=== PATIENT | female | born 1955 | race Caucasian/White ===

== ENCOUNTER 2018-07-23 20:29 | Inpatient (IN) | payer MEDICARE, OTHER ==
[~2018-07-23] VITALS: Ht 162.6 cm; Wt 90.5 kg
[2018-07-23] MEDS ORDERED: LO-DOSE ASPIRIN81 MG PO (21:34)
[2018-07-23] MEDS ORDERED: BUSP5 PO ×2 (21:35→21:36)
[2018-07-23] MEDS ORDERED: Ativan0.5 MG PO (21:35)
[2018-07-23] MEDS ORDERED: DULO60 PO (21:36)
[2018-07-23] MEDS ORDERED: CARV25 PO (21:36)
[2018-07-23] MEDS ORDERED: ALBU3IS INH (21:36)
[2018-07-23] MEDS ORDERED: CLOP75 (21:36)
[2018-07-23] MEDS ORDERED: Isosorbide Mono30 MG (21:38)
[2018-07-23] MEDS ORDERED: FURO20 PO (21:38)
[2018-07-23] MEDS ORDERED: METPRE4DP (21:38)
[2018-07-23] MEDS ORDERED: POTCHL10ER PO (21:39)
[2018-07-23] MEDS ORDERED: OMEPRAZOLE20 MG (21:39)
[2018-07-23] MEDS ORDERED: MELO7.5 PO (21:39)
[2018-07-23] MEDS ORDERED: Nitroglycerin0.4 MG (21:39)
[2018-07-23] MEDS ORDERED: ALBU90OI (21:41)
[2018-07-23] MEDS ORDERED: BUDE10.22 INH (21:41)
[2018-07-23] MEDS ORDERED: Micro-K10 MEQ (21:41)
[2018-07-23] MEDS ORDERED: Zocor20 MG (21:41)
[2018-07-23 22:45] LABS: Hematocrit 37.4 % (33.0-51.0); Hemoglobin 10.7 g/dL (11.5-16.0); Mean Corpuscular HGB 25.8 pg (26.0-34.0); Mean Corpuscular HGB Conc 28.6 g/dL (31.5-36.5); Mean Corpuscular Volume 90 fL (80-100); Mean Platelet Volume 10.7 fL (9.1-12.4); NRBC ABSOLUTE 0.14 K/mm3 (0.00-0.02); NRBC Auto 1.2 /100 WBC (0.0-0.2); Platelet Count 237 K/mm3 (150-400); RDW Coefficient Variation 16.5 % (11.7-14.2); RDW Standard Deviation 54.2 fL (35.1-46.3); Red Blood Cell Count 4.14 M/mm3 (3.80-5.20); White Blood Cell Count 11.48 K/mm3 (4.00-11.30)
[2018-07-23 23:02] LABS: BAND PERCENT MAN 1 % (0-8); BASOPHILS PERCENT MAN 0 % (0-2); EOSINOPHILS PERCENT MAN 0 % (0-6); LYMPHOCYTES ABSOLUTE MAN 1.26 K/mm3 (0.84-5.20); LYMPHOCYTES PERCENT MAN 11 % (21-46); MONOCYTES ABSOLUTE MAN 0.68 K/mm3 (0.16-1.47); MONOCYTES PERCENT MAN 6 % (4-13); MYELOCYTE ABSOLUTE MAN 0.11 K/mm3 (0.00-0.00); MYELOCYTE PERCENT MAN 1 % (0-0); NEUTROPHILS ABSOLUTE MAN 9.41 K/mm3 (1.96-9.15); SEG NEUTROPHILS PERCENT MAN 81 % (41-73); TOTAL CELLS COUNTED 100
[2018-07-23 23:04] LABS: Bilirubin, Total 0.2 mg/dL (0.1-1.0); Bun/Creatinine Ratio 32.4 (12.0-20.0); Calcium, Blood 8.8 mg/dL (8.5-10.1); Creatinine, Blood 1.02 mg/dL (0.40-1.00); Potassium, Blood 4.4 mmol/L (3.5-5.5); Troponin I 0.119 ng/mL (0.000-0.040)
[2018-07-24 00:42] LABS: PCO2 Arterial 98.5 mmHg (35-45); PO2 Arterial 101 mmHg (80-100); pH Blood Arterial 7.21 (7.35-7.45)
[2018-07-24 06:27] LABS: Hematocrit 37.2 % (33.0-51.0); Hemoglobin 10.3 g/dL (11.5-16.0); Mean Corpuscular HGB 25.3 pg (26.0-34.0); Mean Corpuscular HGB Conc 27.7 g/dL (31.5-36.5); Mean Corpuscular Volume 91 fL (80-100); Mean Platelet Volume 10.8 fL (9.1-12.4); NRBC ABSOLUTE 0.12 K/mm3 (0.00-0.02); NRBC Auto 1.2 /100 WBC (0.0-0.2); Platelet Count 221 K/mm3 (150-400); RDW Coefficient Variation 16.6 % (11.7-14.2); RDW Standard Deviation 55.2 fL (35.1-46.3); Red Blood Cell Count 4.07 M/mm3 (3.80-5.20); White Blood Cell Count 10.35 K/mm3 (4.00-11.30)
[2018-07-24 06:39] LABS: Alanine Aminotransfer (ALT/SGP 60 U/L (12-78); Albumin/Globulin Ratio 0.9 (0.8-1.8); Alk Phos 100 U/L (50-136); Anion Gap 4 mmol/L (6-16); Aspartate Aminotrans (AST/SGOT 30 U/L (12-37); Bilirubin, Total 0.3 mg/dL (0.1-1.0); Blood Urea Nitrogen 33 mg/dL (8-24); Bun/Creatinine Ratio 44.2 (12.0-20.0); CO2, Blood 37 mmol/L (21-32); Calcium, Blood 8.9 mg/dL (8.5-10.1); Chloride, Blood 103 mmol/L (98-108); Creatinine, Blood 0.75 mg/dL (0.40-1.00); Globulin, Blood 3.2 g/dL (2.2-4.0); Glomerular Filtration Rate >60 (60-); Glucose, Blood 114 mg/dL (70-99); Potassium, Blood 3.9 mmol/L (3.5-5.5); Sodium, Blood 144 mmol/L (136-145); Total Protein, Blood 6.2 g/dL (6.4-8.2)
[2018-07-24 06:43] LABS: Troponin I 0.101 ng/mL (0.000-0.040)
[2018-07-24 06:46] LABS: Source, Urine Clean Catch
[2018-07-24 06:56] LABS: Appearance, Urine Clear (Clear); Bilirubin, Urine Neg (Neg); Blood, Urine 5+ (Neg); Color, Urine Yellow (P-Yellow); Glucose Qualitative, Urine Neg (Neg); Ketones, Urine Neg (Neg); Leukocyte Esterase, Urine 3+ (Neg); Nitrite, Urine Neg (Neg); Protein, Urine 1+ (Neg); Specific Gravity, Urine 1.025 (1.003-1.022); Urobilinogen, Urine NORM (Normal)
[2018-07-24 07:12] LABS: White Blood Cells, Urine 25-50 /hpf (0-5)
[2018-07-24 07:14] LABS: Bacteria Mod /hpf; Granular Casts 0-2 /lpf (0); Squamous Epithelial Cells Many /hpf (Few)
[2018-07-24 07:15] LABS: WBC Cast 0-2 /lpf (0)
[2018-07-24 07:17] LABS: U Amphetamine Screen Not Detected; U Barbituate Screen Not Detected; U Benzodiazapine Screen Not Detected; U Buprenorphine Screen Not Detected; U Cannabinoids Screen Not Detected; U Cocaine Screen Not Detected; U Methadone Screen Not Detected; U Methamphetamine Screen Not Detected; U Opiates Screen Not Detected; U Oxycodone Screen Not Detected; U Phencyclidine Screen Not Detected; U Propoxyphene Screen Not Detected
--- NOTE | 2018-07-24 07:21 | NUR ---
SHIFT SUMMARY PT SLEEPING IN ROOM COMFORTABLY AT THIS TIME. T/O NIGHT PT SLEPT W/ BIPAP ONSATS >92%. PT TOLERATES MASK WELL. DENIES CP. PT HAD CT SCAN. REPORTS CHRONIC PAIN TO ACK. KPAD APPLIED FOR COMFORT. PT IS NPO FOR CARDIO CONSULT THIS AM. HEPARIN GTT INFUING IN PIV. CALL LIGHT IN REACH.
--- NOTE | 2018-07-24 10:35 | NUR ---
Echocardiogram completed.
--- NOTE | 2018-07-24 15:02 | NUR ---
Patient is sitting in a chair and alert when I entered the room. Patient immediately shared about her medical issues and about her deep desire to be closer to God. I explored patient's belief system, facilitated a life review, normalized patient's experience, provided pastoral benefits counselor and prayer and reinforced helpful attitudes and practices. Patient responded well to all interventions and displayed evidence of restored bibi.
[2018-07-24 15:13] LABS: Troponin I 0.068 ng/mL (0.000-0.040)
--- NOTE | 2018-07-24 18:26 | NUR ---
SHIFT SUMMARY PT ALERT AND ORIENTED. VS STALE. O2 SATS HAVE REMAINED ABOVE 90% ON 5L NC. PT USES 3L NC AT BASELINE. HEPARIN GTT INFUSING PER ORDERS. PT COMPLAINED OF BACK PAIN THIS AM THAT WAS RELIEVED WITH MEDICATION ADMINISTRATION. PT ABLE TO TRANSFER TO BATHROOM NEEDED WITH SBA AND FWW. NO OTHER CHANGES THIS SHIFT. WILL CONTINUE TO MONITOR AND REPORT TO ONCOMING RN. CALL LIGHT IN REACH.
--- NOTE | 2018-07-25 04:53 | NUR ---
SHIFT SUMMARY PT A&O X4 W/ EPISODES OF FORGETFULNESS. LUNG SOUNDS DIM T/O. SPO2 > 90% ON 5L NC OR BIPAP /, FIO2 35%. PT WEARING BIPAP OFF AND ON T/O SHIFT. MONITOR SHOWS NSR, HR 80'S. PT DENIES CP T/O SHIFT. HEPARIN GTT INFUSING PER ORDERS. WILL CONTINUE TO MONITOR AND PROVIDE CARE UNTIL REPORT OFF TO DAY SHIFT RN.
[2018-07-25 05:44] LABS: Hematocrit 36.7 % (33.0-51.0); Hemoglobin 10.3 g/dL (11.5-16.0); Mean Corpuscular HGB 25.5 pg (26.0-34.0); Mean Corpuscular HGB Conc 28.1 g/dL (31.5-36.5); Mean Corpuscular Volume 91 fL (80-100); Mean Platelet Volume 10.9 fL (9.1-12.4); NRBC ABSOLUTE 0.02 K/mm3 (0.00-0.02); NRBC Auto 0.2 /100 WBC (0.0-0.2); Platelet Count 210 K/mm3 (150-400); RDW Coefficient Variation 15.8 % (11.7-14.2); RDW Standard Deviation 51.8 fL (35.1-46.3); Red Blood Cell Count 4.04 M/mm3 (3.80-5.20); White Blood Cell Count 10.52 K/mm3 (4.00-11.30)
[2018-07-25 06:09] LABS: Anion Gap 1 mmol/L (6-16); Blood Urea Nitrogen 28 mg/dL (8-24); Bun/Creatinine Ratio 53.9 (12.0-20.0); CO2, Blood 40 mmol/L (21-32); Calcium, Blood 8.7 mg/dL (8.5-10.1); Chloride, Blood 99 mmol/L (98-108); Creatinine, Blood 0.52 mg/dL (0.40-1.00); Glomerular Filtration Rate >60 (60-); Glucose, Blood 216 mg/dL (70-99); Potassium, Blood 4.4 mmol/L (3.5-5.5); Sodium, Blood 140 mmol/L (136-145)
--- NOTE | 2018-07-25 08:05 | NUR ---
AM NOTE. ASSUMED CARE OF PT APROX 0700, PT IS A&Ox4 BUT IS FORGETFUL AT TIMES PER PT. PT WAS ABLE TO STATE THE DATE, PLACE, PRESIDENT AND EVENT THAT BROUGHT HER HERE. PT WAS ADMITTED DUE TO CP, PT IS ON A HEPARIN GTT AT 23 U/KG/HR RUNNING AT 31.3 MLS/HR PER ORDRES. TELE INTACT, NSR IN THE 90'S PER LABOR SPECIALIST, PT'S BP 159/102, 3+ PITTING EDEMA NOTED TO THE PT'S BILAT FEET AND 2+ UP THE PT'S RIGHT LEG. PT'S L/S VERY DIM T/O, PT IS ON 6L NC WITH O2 W/SATS 89-93%. BT PRESENT AND HYPOACTIVE, ABD IS SOFT AND NONTENDER TO PALP. CALL LIGHT IN REACH, BED IS LOCKED AND LOW WILL CONTINUE TO MONITOR.
--- NOTE | 2018-07-25 18:22 | NUR ---
SHIFT SUMMARY. NO ACUTE CHANGES NOTED THIS SHIFT. PT'S VS HAVE BEEN STABLE. PT DENIES ANY CHEST PAIN/PRESSURE, N/V AND NO ABNORMAL SOB. PT'S O2 HAS BEEN TITRATED FROM 6L NC TO 4L NC AND WILL CONTINUE TO TITRATE PT TOLERATES. PT C/O OF PAIN AND WAS MEDICATED PER EMAR W/GOOD RESULTS. PT HAS BEEN UP IN THE CHAIR FOR MEALS AND SITTING AT THE SIDE OF THE BED AND HAS TOLERATED THIS WELL. CALL LIGHT IN REACH, BED IS LOCKED AND LOW WILL CONTINUE TO MONITOR UNTIL REPORT IS GIVEN TO ONCOMING RN.
--- NOTE | 2018-07-26 04:48 | NUR ---
SHIFT SUMMARY PT A&O X4 W/ EPISODES OF FORGETFULNESS. PT CALM AND COOPERATIVE. SBA TO BSC. LUNG SOUNDS DIM T/O. SPO2 > 90% ON 4L NC OR BIPAP 03/19, FIO2 35%. PT WEARING BIPAP MAJORITY OF SHIFT. MONITOR SHOWS NSR, HR 80'S. NO CP THIS SHIFT. WILL CONTINUE TO MONITOR AND PROVIDE CARE UNTIL REPORT OFF TO DAY SHIFT RN.
[2018-07-26 06:58] LABS: Anion Gap 2 mmol/L (6-16); Blood Urea Nitrogen 24 mg/dL (8-24); Bun/Creatinine Ratio 53.6 (12.0-20.0); CO2, Blood 38 mmol/L (21-32); Calcium, Blood 8.6 mg/dL (8.5-10.1); Chloride, Blood 99 mmol/L (98-108); Creatinine, Blood 0.45 mg/dL (0.40-1.00); Glomerular Filtration Rate >60 (60-); Glucose, Blood 157 mg/dL (70-99); Potassium, Blood 4.3 mmol/L (3.5-5.5); Sodium, Blood 139 mmol/L (136-145)
[2018-07-27 04:20] LABS: Hematocrit 35.6 % (33.0-51.0); Hemoglobin 10.2 g/dL (11.5-16.0); Mean Corpuscular HGB 25.9 pg (26.0-34.0); Mean Corpuscular HGB Conc 28.7 g/dL (31.5-36.5); Mean Corpuscular Volume 90 fL (80-100); Mean Platelet Volume 11.3 fL (9.1-12.4); NRBC ABSOLUTE 0.02 K/mm3 (0.00-0.02); NRBC Auto 0.1 /100 WBC (0.0-0.2); Platelet Count 225 K/mm3 (150-400); RDW Coefficient Variation 15.8 % (11.7-14.2); RDW Standard Deviation 51.5 fL (35.1-46.3); Red Blood Cell Count 3.94 M/mm3 (3.80-5.20)
[2018-07-27 04:42] LABS: Anion Gap 2 mmol/L (6-16); Blood Urea Nitrogen 23 mg/dL (8-24); Bun/Creatinine Ratio 52.4 (12.0-20.0); CO2, Blood 41 mmol/L (21-32); Calcium, Blood 9.2 mg/dL (8.5-10.1); Chloride, Blood 97 mmol/L (98-108); Creatinine, Blood 0.44 mg/dL (0.40-1.00); Glomerular Filtration Rate >60 (60-); Glucose, Blood 101 mg/dL (70-99); Potassium, Blood 4.1 mmol/L (3.5-5.5); Sodium, Blood 140 mmol/L (136-145)
--- NOTE | 2018-07-27 06:14 | NUR ---
SHIFT SUMMARY PT A&O X4. PT C/O BACK PAIN, TX'D PER EMAR AND HEAT PAD. LUNG SOUNDS DIM T/O. SPO2 > 90% ON 3L NC. BIPAP AT BEDSIDE W/ MINIMAL USE THIS SHIFT D/T PT REFUSAL. MONITOR SHOWS NSR. SBA TO BSC. WILL CONTINUE TO MONITOR AND PROVIDE CARE UNTIL REPORT OFF TO DAY SHIFT RN.
--- NOTE | 2018-07-27 10:48 | NUR ---
PCU DAYSHIFT ASSUMED CARE OF PT APPROX. 0700. PT A&O X4. ASSESSMENT COMPLETED. VITAL SIGNS STABLE. PT ABLE TO AMBUALTE TO BEDSIDE COMMODE THIS MORNING NEEDED AND TOLERATED WELL. PT LENARD HAS 3L OXYGEN VIA N.C. IN PLACE WITH OXYGEN IN 90'S. PT FORGETFUL AT TIMES. PT ASKED ABOUT TAKING OXYGEN OFF FOR A BREAK. REINFORECED AND EDUCATED PT ON IMPORTANCE OF KEEPING OXYGEN IN PLACE. PT ABLE TO SIT UP AT BEDSIDE FOR BREAKFAST. PMD IN TO SEE PT THIS MORNING. RECIEVED ORDERS TO TRANSFER IN HOUSE TO MEDICAL FLOOR WITH TELEMETRY IN PLACE. PT REPORTS BACK PAIN INCREASED THIS MORNING. PRN PAIN MEDICATION GIVEN FOR THIS. PT HAS SCATTERED BRUISING THROUGHOUT BODY, INCLUDING EXTREMITIES, FACE AND AROUND EYES. PT REPORTS THIS TO BE FROM PREVIOUS FALLS. BED IN LOW POSITION, CALL LIGHT IN REACH AND PT DENIES ANY NEEDS AT THIS TIME. WILL CONTINUE TO MONITOR.
--- NOTE | 2018-07-27 16:37 | NUR ---
PATIENT ARRIVES VIA W/C ON 3 LPM OXYGEN VIA N/C. COOPERATIVE. CHEERFUL. BRUISES T/O. SCAR LT POSTERIOR UPPER BACK. AMBULATORY W/STEADY GAIT TO BED. BILATERAL PITTING EDEMA. TELE ON WITH TECH STATING SR AT 86. ORIENTED TO ROOM. BED IN LOW POSITION. UNLABORED RESPIRATIONS. WILL CONTINUE TO MONITOR.
--- NOTE | 2018-07-28 03:41 | NUR ---
SHIFT SUMMARY THE PT ADMITTED FOR CP. FULL CODE. REGULAR DIET. TELE-NSR AT A RATE OF 93 WIT PACS PER CASING FLUID TENDER. LOVENOX. 3L O2 VIA NC WHICH IS BASELINE PER REPORT. PT IS A STANDBY ASSIST WITH TRANSFERS. PT REPORTS HAVING MULTIPLE FALLS AT HOME AND PT NOTED TO HAVE SEVERAL BRUISES SECONDARY TO THESE FALLS. THE PT CAME FROM [facility] AND IT IS UNCLEAR HOW THE PT WILL GET HOME PER REPORT. 20G IV TO L FA. TAKES MEDICATIONS WHOLE. THE PT PRESENTED TO [facility] WITH C/O CP AND INCREASED TROPONINS. THE PT TRANSFERRED FROM [facility] FOR [facility]. THE PT WAS NOTED ON ADMIT TO HAVE ACUTE ENCEPHALOPATHY OF UNCLEAR ETIOLOGY, WHICH HAS SENSE RESOLVED, AND ACUTE RESPIRATORY FAILURE. THE PT IS NOW AWAITING CARDIOLOGY PLANS AND CARE MANAGMENT DISCHARGE PLANS. THE PT HAS BEEN AWAKE MOST OF THE NIGHT ASKING FOR SNACKS AND EATING. THE PT IS UP AT BEDSIDE AT THIS TIME WITH NO APPARENT SIGNS OF ACUTE DISTRESS. PT SLEPT A SHORT TIME EARLIER IN THE EVENING WITH C-PAP IN PLACE BUT HAS NOT RE-APPLIED SINCE REMOVAL AT THAT TIME. ABLE TO MAKE NEEDS KNOWN AND CALL LIGHT IN REACH.
[2018-07-28 05:53] LABS: Hemoglobin 10.4 g/dL (11.5-16.0); Mean Corpuscular HGB 25.8 pg (26.0-34.0); Mean Corpuscular HGB Conc 28.9 g/dL (31.5-36.5); Mean Corpuscular Volume 89 fL (80-100); NRBC ABSOLUTE 0.03 K/mm3 (0.00-0.02); NRBC Auto 0.3 /100 WBC (0.0-0.2); Platelet Count 193 K/mm3 (150-400); RDW Coefficient Variation 15.9 % (11.7-14.2); RDW Standard Deviation 51.8 fL (35.1-46.3); Red Blood Cell Count 4.03 M/mm3 (3.80-5.20); White Blood Cell Count 11.86 K/mm3 (4.00-11.30)
[2018-07-28 06:12] LABS: Anion Gap 0 mmol/L (6-16); Blood Urea Nitrogen 23 mg/dL (8-24); Bun/Creatinine Ratio 41.4 (12.0-20.0); CO2, Blood 42 mmol/L (21-32); Chloride, Blood 98 mmol/L (98-108); Creatinine, Blood 0.56 mg/dL (0.40-1.00); Glomerular Filtration Rate >60 (60-); Glucose, Blood 114 mg/dL (70-99); Potassium, Blood 4.1 mmol/L (3.5-5.5); Sodium, Blood 140 mmol/L (136-145)
--- NOTE | 2018-07-28 18:29 | NUR ---
ALERT. CALLS OFTEN BUT DOES NOT REALLY NEED ANYTHING; SUCH , RELAYS ABOUT WHAT IS ON TV. TELE ON. IV PATENT. WILL CALL WHEN HAS TO USE BATHROOM. BRUSING T/O BODY FROM MULTIPLE FALLS AT HOME. UNLABORED RESPIRATIONS. WILL CONTINUE TO MONITOR.
--- NOTE | 2018-07-29 03:46 | NUR ---
SHIFT SUMMARY THIS NURSE OBSERVED PT PULLING OFF TAPE TO CONTINUOUS PULSE OX ON FINGER. THIS NURSE ADVISED PT THAT IF SHE CONTINUED TO DO THAT THEN THE ALARM WOULD KEEP SOUNDING THE PT STATED THAT SHE DID NOT WANT THE BIOX ON ANYMORE. CALL TO RT WHO HAD PT SIGN CONSENT AND CONTINUOUS PULSE OX REMOVED. THE PT HAD C/O PAIN 1 TIME SO FAR THIS SHIFT, SHE WAS MEDICATED PER EMAR. THE PT APPEARS TO BE SLEEPING AT THIS TIME WITH NO APPARENT SIGNS ACUTE DISTRESS. ABLE TO MAKE NEEDS KNOWN AND CALL LIGHT IN REACH.
--- NOTE | 2018-07-29 13:23 | NUR ---
Patient is sitting on the edge of her bed and alert. Patient spoke clearly and coherently for several sentences and then would would have a word or sentence that doesn't fit. Patient was very pleasant and enjoys talking about spiritual matters. I listened empathically, provided spiritual guidance, companionship and prayer. Patient responded well and displayed evidnce of an elevated mood.
--- NOTE | 2018-07-29 18:33 | NUR ---
SHE HAS SAT ON THE SIDE OF THE BED 1/2 THE DAY TODAY. O2 3L. SHE HAS SPOKEN WITH THE SENIOR PORTFOLIO ANALYST. SHE FOUND MORE INFO FOR HER THAT WE WILL PASS ON TO THE SENIOR PORTFOLIO ANALYST IN THE MORNING. TELE UNCHANGED. PROFUSE BRUISING ALL OVER HER BODY FROM FALLS AT HOME.
--- NOTE | 2018-07-30 06:23 | NUR ---
SHIFT SUMMARY PT IS A 62 Y/O FEMALE, ORIGINALLY ADMITTED FOR CHEST PAIN. SHE DENIED ANY CHEST PAIN DURING THE NIGHT, BUT DID REPORT BACK PAIN, FOR WHICH SHE WAS MEDICATED X1 WITH PRN TRAMADOL. SHE DENIED ANY ACUTE NAUSEA OR SOB. VITALS REMAINED STABLE. NO OTHER ACUTE CHANGES IN PT CONDITION NOTED. WILL CONTINUE TO MONITOR AND TREAT PER EMAR UNTIL HAND OFF TO DAY SHIFT.
--- NOTE | 2018-07-30 12:41 | NUR ---
SHE HAS BEEN SITTING UP ON THE SIDE OF THE BED ALL DAY. SHE DID AMBULATE WITH THERAPY IN THE GARCIA. SHE STARTED WITH A HIGH BP. IT CAME DOWN AFTER ROUTINE AM MEDS. ENRICHMENT TEACHER IS MAKING ARRANGEMENTS FOR HER TO BE ABLE TO DC HOME TOMORROW. ROUNDED. TELE DC'D. SHE TAKES TRAMADOL PRN FOR HER CHRONIC BACK PAIN.
--- NOTE | 2018-07-30 16:20 | NUR ---
SHE IS TAKING A NAP. I HAVE ENCOURAGED HER TO PUT HER LEGS UP BECAUSE OF HER EDEMA. SHE BREATHES IRREGULARLY AND HAS BODY JERKS WHEN SHE SLEEPS. O2 DOWN TO 3L INSTEAD OF 4.
--- NOTE | 2018-07-30 17:15 | NUR ---
SHE HAD AN UNEVENTFUL DAY UNTIL SHE WOKE UP FROM HER NAP A LITTLE WHILE AGO AND WALKED TO THE BATHROOM AND BACK. SHE WAS SOB WITH O2 AT 3L. BIOX SHOWED THE 70'S AND LOW 80'S. UP TO 4L, SHOWED ALL 80'S. UP TO 5L NC UP TO 91% BUT WOULD NOT SUSTAIN. FELL DOWN TO THE LOW 80'S. CPAP PUT ON AND BIOX UP TO 98% QUICKLY. TRIED CANNULA AGAIN, BUT BIOX DROPPED BELOW 90. I NOTIFIED RT. SHE IS CURRENTLY RECEIVING A NEB TREATMENT AND RT WILL TRY HER ON A HIGH FLOW CANNULA. NO OTHER SYMPTOMS OTHER THAN SOB. PULSE IS 113.
[2018-07-31 04:39] LABS: PCO2 Venous 77.4 mmHg (38-42); PO2 Venous 36.7 mmHg (38-42); pH Blood Venous 7.38 (7.34-7.37)
[2018-07-31 04:40] LABS: Base Excess Venous 20.1 mmol/L
--- NOTE | 2018-07-31 06:41 | NUR ---
SHIFT SUMMARY PT IS A 62 Y/O FEMALE, ADMITTED FOR CHEST PAIN. SHE IS A&O X 3, AND ABLE TO AMBULATE SBA/INDEPENDENT IN THE ROOM WITH A WALKER. SHE DOES GET VISIBLY DYSPNEIC WHEN AMBULATING, WHICH IS RELIEVED WITH OXYGEN AND REST. SHE REPORTED CHRONIC BACK PAIN, BUT DENIED ANY CHEST PAIN. NO COMPLAINTS OF NAUSEA. VITALS REMAINED STABLE. NO OTHER ACUTE CHANGES IN PT CONDITION NOTED. WILL CONTINUE TO MONITOR AND TREAT PER EMAR.
--- NOTE | 2018-07-31 10:21 | NUR ---
Patient stated that she is delighted to be going home but was not sure how she was going to get there. She said that a staff member was working on it. Patient had many stories today and most of them caused patient to encourage herself. I provided emotional support, reinforced helpful attitudes and practices and provided prayer. Patient responded well and expressed gratitude for my visits.
[2018-07-31] MEDS ORDERED: ALBU90OI INH (12:11)
[2018-07-31] MEDS ORDERED: PRED20 (12:18)
--- NOTE | 2018-07-31 14:53 | NUR ---
DISCHARGE NOTE- PT DISCHARGED HOME ON HOME HEALTH. PT TAKEN BY [facility] TRANSPORT TO HER HOME IN [facility]. PT WAS GIVEN VERBAL AND WRITTEN DISCHARGE INSTRUCTIONS AND ACKNOWLEDGED UNDERSTANDING OF THEM. PT WAS TALKING TO HER DR OFFICE ON THE PHONE ON THE WAY TO THE [facility] TRANSPORT FOLLOW UP APPOINTMENT SCHEDULED FOR FRIDAY AT 1445. PT WROTE IT DOWN WHEN THE DR GAVE HER THE APPOINTMENT INFO. PT WAS PROVIDED WITH CONTACT INFO FOR MEDICAL FLOOR IF QUESTIONS SHOULD ARRISE ABOUT HER DISCHARGE LATER TODAY, FOR ALL OTHER QUESTIONS SHE WAS DIRECTED TO SPEAK TO HER PCP. PT MEDICATED FOR PAIN PRIOR TO DISCHARGE.
== END 2018-07-31 13:58 | disposition home health service (06) | DRG 189 ==
LOC: ER 20:29 → PCU 20:30 → MEDS 07-27 16:24 → ENPENDDIS 07-31 10:02 → MEDS 07-31 13:58
PROVIDERS: Emergency Medicine; Internal Medicine; ADMIT Internal Medicine
PROC: 5A09457 Assistance with Respiratory Ventilation, 24-96 Consecutive Hours, Continuous Positive Airway Pressure (ICD-10-PCS; principal; 2018-07-24)
DX: J96.21 Acute and chronic respiratory failure with hypoxia (principal); G92 Toxic encephalopathy; E66.2 Morbid (severe) obesity with alveolar hypoventilation; N17.9 Acute kidney failure, unspecified; Z68.41 Body mass index [BMI] 40.0-44.9, adult; J44.1 Chronic obstructive pulmonary disease with (acute) exacerbation; F01.50 Vascular dementia, unspecified severity, without behavioral disturbance, psychotic disturbance, mood disturbance, and anxiety; I25.10 Atherosclerotic heart disease of native coronary artery without angina pectoris; J96.22 Acute and chronic respiratory failure with hypercapnia; G47.30 Sleep apnea, unspecified; Z95.5 Presence of coronary angioplasty implant and graft; G89.29 Other chronic pain; I13.10 Hypertensive heart and chronic kidney disease without heart failure, with stage 1 through stage 4 chronic kidney disease, or unspecified chronic kidney disease; N18.2 Chronic kidney disease, stage 2 (mild); D63.1 Anemia in chronic kidney disease; E88.09 Other disorders of plasma-protein metabolism, not elsewhere classified; Z99.81 Dependence on supplemental oxygen; Z79.01 Long term (current) use of anticoagulants; Z79.02 Long term (current) use of antithrombotics/antiplatelets; Z79.82 Long term (current) use of aspirin; E78.5 Hyperlipidemia, unspecified; K21.9 Gastro-esophageal reflux disease without esophagitis; M54.5 Low back pain; Z87.891 Personal history of nicotine dependence
CPT/HCPCS: 36415; 36600; 70450; 71046; 80048; 80053; 81001; 82550; 82803; 83880; 84484; 85025; 85027; 85730; 87077; 87086; 87186; 93005; 93010; 93306; 93880; 94640; 94660; 94760; 94762; 96374; 96375; 96376; 97116; 97162; 97166; 97530; 99285-25; G0378; G0515; J1644; J1650; J2930; J7512